=== PATIENT | male | born 1965 | race Caucasian/White ===

== ENCOUNTER 2024-10-17 15:39 | Outpatient (CLI) | payer MEDICAID ==
--- NOTE | 2024-10-17 16:22 | RADIOLOGY REPORT ---
EXAM: CT CT CHEST LOW DOSE INDICATION: NICOTINE DEPENDENCE TECHNIQUE: Low-dose noncontrast CT of the lungs have been obtained. All CT scans at this facility use dose modulation, iterative reconstruction, and/or weight based dosing when appropriate to reduce rad iation dose to as low as reasonably achievable. COMPARISON: None FINDINGS: LOWER NECK: Unremarkable LYMPH NODES/MEDIASTINUM: No abnormal lymph nodes by CT size criteria CARDIOVASCULAR: Normal cardiac size. No pericardial effusion. No aneurysmal dilatation of the great v essels. Coronary artery calcifications. UPPER ABDOMEN: Limited evaluation secondary to photon starvation. Unremarkable. MUSCULOSKELETAL: Multilevel degenerative change of the visualized spine. No acute fracture or aggress sanam focal osseous lesion. CHEST WALL: Unremarkable. LUNG/PLEURAL SPACE: No consolidation, suspicious focal airspace opacity, or suspicious nodules. No pl eural effusion or pneumothorax. Benign-appearing. Fissural nodule along the right minor fissure. At electasis and/or scarring in bilateral lung bases. Biapical pleural-parenchymal scarring. Emphysema. IMPRESSION: 1. No CT evidence of an acute intrathoracic process. LUNG-RADS: 2- Benign Appearance or Behavior RECOMMENDATION: Annual low dose lung screening CT is recommended for 15 years after smoking cessation or until age 77. CITATION: Lung cancer screening categorization and recommendations per [employer] Lung-RADS Version 1.0 (http://[email or web address].org/Quality-Safety/Resources/LungRADS).
== END 2024-10-17 23:59 | disposition home or self-care (01) ==
LOC: RAD 15:39
PROVIDERS: ATTEND Nurse Practitioner Family
DX: Z12.2 Encounter for screening for malignant neoplasm of respiratory organs (principal); F17.210 Nicotine dependence, cigarettes, uncomplicated; M47.814 Spondylosis without myelopathy or radiculopathy, thoracic region
CPT/HCPCS: 71271